=== PATIENT | male | born 1970 | race Caucasian/White ===

== ENCOUNTER 2020-02-01 10:20 | Outpatient (CLI) | payer OTHER, SELFPAY ==
--- NOTE | ~2020-02-01 | XR_ITS ---
XR chest 2V DATE: 02/01/2020 10:52 INDICATION: Acute respiratory infection for 6 days TECHNIQUE: PA and lateral views COMPARISON: 05/13/2019 PA and lateral views FINDINGS: Normal heart size. No hilar or mediastinal enlargement. No pulmonary infiltrate or consol idation, pulmonary vascular congestion or pleural effusion or pneumothorax. IMPRESSION: No active cardiopulmonary disease Reviewed, dictated and finalized at location A.
[2020-02-01 10:54] LABS: Hematocrit 44.8 % (40.0-54.0); Hemoglobin 15.4 g/dL (14.0-18.0); Mean Corpuscular HGB Conc 34.4 g/dL (32.0-36.0); Mean Corpuscular Hemoglobin 30.3 pg (27.0-31.0); Mean Corpuscular Volume 88.2 fL (78.0-102.0); Mean Platelet Volume 9.6 fl (8.7-11.0); Platelet Count Result 312 K/mm3 (150-420); Red Blood Count 5.08 M/mm3 (4.70-6.10); Red Cell Distribution Width 12.7 % (11.6-14.4); White Blood Count 5.9 K/mm3 (4.8-10.8)
[2020-02-01 11:30] LABS: Anion Gap 13.3 mmol/L (7-16); Blood Urea Nitrogen 11 mg/dL (7-18); Calcium 8.5 mg/dL (8.5-10.1); Carbon Dioxide 29 mmol/L (21-32); Chloride 102 mmol/L (98-108); Estimated Glomerular Filt Rate > 60; Glucose 108 mg/dL (70-99); Osmolality Calculated 292 mOsm/kg (285-295); Potassium 3.3 mmol/L (3.5-5.1); Sodium 141 mmol/L (136-145)
== END 2020-02-01 10:21 | disposition home or self-care (01) ==
LOC: CHSLAB 10:23
PROVIDERS: PCP Family Medicine; Visit Provider Family Medicine
DX: J06.9 Acute upper respiratory infection, unspecified (principal)
CPT/HCPCS: 36415; 71046; 80048; 85027

== ENCOUNTER 2021-05-11 07:26 | Outpatient (CLI) | payer OTHER, SELFPAY ==
--- NOTE | ~2021-05-11 | MR_ITS ---
EXAMINATION: MR brain/brain stem wo con DATE: 05/13/2021 08:38 CDT INDICATION: Headache TECHNIQUE: Magnetic resonance imaging (MRI) of the brain and brainstem was performed without intraven ous contrast. Sequences included sagittal and axial T1-weighted SE, axial diffusion-weighted FS SE, a xial T2*-weighted GRE, axial T2-weighted FLAIR Propeller, and axial T2-weighted Propeller. Apparent d iffusion coefficient (ADC) maps were created. COMPARISON: No prior studies for comparison. FINDINGS: The brain volume and ventricular system are within normal limits. The brain parenchymal si gnal intensity pattern and penn/white matter is normal and there is no evidence of hemorrhage, space occupying masses or infarctions. The flow signal voids of the major arterial structures about the kaibab of Weiss and within the cb r dural venous sinuses appear grossly unremarkable and patent. The seventh and eighth cranial nerve complexes are normal. The mid sagittal image demonstrates a normal craniovertebral junction and roberto us callosum. The paranasal sinuses are grossly unremarkable. IMPRESSION: 1: Unremarkable MRI of the brain. Reviewed, dictated and finalized at location B.
== END 2021-05-11 07:27 | disposition home or self-care (01) ==
LOC: CHSIMG 07:29
PROVIDERS: PCP Family Medicine; Visit Provider Family Medicine
DX: R51.9 Headache, unspecified (principal)
CPT/HCPCS: 70551

== ENCOUNTER 2021-05-15 12:16 | Outpatient (CLI) | payer OTHER, SELFPAY ==
--- NOTE | 2021-05-15 13:55 | WPDPFTINT ---
PFT Procedure Performed PFT Procedure Performed Spirometry with Pre/Post Bronchodilator Plethysmography (Lung Vol) Diffusing Cap (DLCO) Flow Vol Loop PFT Interpretation DOS: 05/15/2021 REQUESTING: Dr. Barkley REASON FOR TESTING: Post COVID shortness of breath PULMONARY FUNCTION TESTS Results are reliable and reproducible Spirometry: FEV1 is 80% predicted, 2.75 L. FVC is 85% predicted. The FEV1/ FVC ratio was 92% normal. FEF 25-75% is 59%. There is no statistical change after bronchodilator administration. Lung volumes: Total lung capacity is 82%, normal. Residual volume 72% normal. RV/TLC is normal. There is no hyperinflation or air trapping. Increased airway resistance 192%. Diffusion: DLCO is 109%, normal. Flow volume loop: Normal flow volume loop. IMPRESSION: This shows a normal spirometry, lung volumes and diffusion with a normal flow volume loop. There is no change with bronchodilator. No correlate for the patient's symptoms. Philomena Mercer MD
--- NOTE | 2021-05-17 15:42 | WPDHOLTEREM ---
Holter/Event Monitor Holter/Event Monitor Date of procedure: 05/15/21 Holter/Event Procedure: 48 Hr Holter Monitor Indications: Palpitations Conclusion: 1. 48 hour holter monitor on 05/15/21. 2. Underlying rhythm is sinus rhythm. HR range 53-154 bpm; average HR 83 bpm. 3. There are 4 premature supraventricular complexes. No supraventricular tachycardia. 4. There are 36 premature ventricular complexes. No ventricular tachycardia. 5. No sinoatrial or atrioventricular blocks. No significant pauses greater than 2 seconds. 6. Patient reports symptoms of shortness of breath and dizziness which demonstrate sinus rhythm, HR range 103-113 bpm.
== END 2021-05-15 12:17 | disposition home or self-care (01) ==
LOC: CHSCARD 12:19
PROVIDERS: PCP Family Medicine; Visit Provider Family Medicine
DX: R00.2 Palpitations (principal); B99.9 Unspecified infectious disease
CPT/HCPCS: 93225; 93226; 93227; 94060; 94726; 94729

== ENCOUNTER 2021-06-26 12:54 | Outpatient (CLI) | payer OTHER, SELFPAY ==
[2021-06-26 13:54] LABS: SARS-CoV-2 RNA PCR Negative (Negative)
== END 2021-06-26 12:55 | disposition home or self-care (01) ==
PROVIDERS: PCP Family Medicine; Visit Provider Nurse Practitioner Family
DX: Z20.822 Contact with and (suspected) exposure to COVID-19 (principal)
CPT/HCPCS: C9803; U0003; U0005

== ENCOUNTER 2021-07-16 10:18 | Outpatient (CLI) | payer OTHER, SELFPAY ==
[2021-07-16 11:12] LABS: Cholesterol 221 mg/dL (0-200); HDL Direct 30 mg/dL (40-60); LDL Cholesterol Calculated 151 mg/dL (<130); Prostate Specific Antigen 0.5 ng/mL (< OR = 4.0); Triglycerides 201 mg/dL (0-150)
== END 2021-07-16 10:19 | disposition home or self-care (01) ==
PROVIDERS: PCP Family Medicine; Visit Provider Family Medicine
DX: R35.0 Frequency of micturition (principal)
CPT/HCPCS: 36415; 80061; 84153; 87086; G0103

== ENCOUNTER 2021-08-05 10:06 | Outpatient (CLI) | payer OTHER, SELFPAY ==
[2021-08-05 11:25] LABS: SARS-CoV-2 RNA PCR Negative (Negative)
== END 2021-08-05 10:07 | disposition home or self-care (01) ==
LOC: CHSLAB 10:09
PROVIDERS: PCP Family Medicine; Visit Provider Family Medicine
DX: Z20.822 Contact with and (suspected) exposure to COVID-19 (principal)
CPT/HCPCS: C9803; U0003; U0005

== ENCOUNTER 2021-09-16 09:52 | Outpatient (CLI) | payer OTHER, SELFPAY ==
[2021-09-16 11:25] LABS: Influenza A QL RT-PCR Negative (Negative); Influenza B QL RT-PCR Negative (Negative); SARS-CoV-2 RNA PCR Negative (Negative)
== END 2021-09-16 09:53 | disposition home or self-care (01) ==
PROVIDERS: PCP Family Medicine; Visit Provider Family Medicine
DX: R05.9 Cough, unspecified (principal); Z20.822 Contact with and (suspected) exposure to COVID-19
CPT/HCPCS: 87502; C9803; U0003; U0005

== ENCOUNTER 2021-09-19 15:21 | Outpatient (CLI) | payer OTHER, SELFPAY ==
--- NOTE | ~2021-09-19 | XR_ITS ---
EXAMINATION: XR chest 2V EXAM DATE: 09/19/2021 15:38 INDICATION: Cough with SOB x 1 wk. no other chest complaints. TECHNIQUE: Frontal and lateral projections of the chest obtained and reviewed. Comparison is made to prior examination from 02/01/2020. FINDINGS: The lungs are clear. There are no pleural effusions. The cardiomediastinal silhouette is within normal limits. There is no pneumothorax suspected. The bones and soft tissues are unremarkab le. IMPRESSION: No acute cardiopulmonary findings. Reviewed, dictated and finalized at location B.
== END 2021-09-19 15:22 | disposition home or self-care (01) ==
LOC: CHSIMG 15:22
PROVIDERS: PCP Nurse Practitioner Family; Visit Provider Nurse Practitioner Family
DX: R05.9 Cough, unspecified (principal)
CPT/HCPCS: 71046

== ENCOUNTER 2021-10-16 09:18 | Outpatient (CLI) | payer OTHER, SELFPAY ==
[2021-10-16 10:41] LABS: SARS-CoV-2 RNA PCR Negative (Negative)
== END 2021-10-16 09:19 | disposition home or self-care (01) ==
LOC: CHSLAB 09:21
PROVIDERS: PCP Family Medicine; Visit Provider Nurse Practitioner Family
DX: Z20.822 Contact with and (suspected) exposure to COVID-19 (principal)
CPT/HCPCS: C9803; U0003; U0005

== ENCOUNTER 2021-11-27 13:13 | Outpatient (CLI) | payer OTHER, SELFPAY ==
[2021-11-27 14:18] LABS: SARS-CoV-2 Ag Negative (Negative)
== END 2021-11-27 13:14 | disposition home or self-care (01) ==
LOC: CHSLAB 13:15
PROVIDERS: PCP Family Medicine; Visit Provider Nurse Practitioner Family
DX: Z20.822 Contact with and (suspected) exposure to COVID-19 (principal)
CPT/HCPCS: 87426; C9803

== ENCOUNTER 2022-06-25 07:22 | Outpatient (CLI) | payer OTHER, SELFPAY ==
--- NOTE | ~2022-06-25 | US_ITS ---
US abdomen limited INDICATION: Abdomen pain and nausea PROCEDURE: Realtime right upper abdominal ultrasound. COMPARISON: No prior studies for comparison. FINDINGS: The pancreas is normal without focal mass or pancreatic ductal dilation. Liver echotexture is increased, consistent with fatty infiltration. There is normal directional flow in the portal ve in. The gallbladder is normal without stones, gallbladder wall thickening or pericholecystic fluid. Comm on bile duct measures 3 mm. No sonographic Mcguire's sign. IMPRESSION: 1: Hepatic steatosis. Reviewed, dictated and finalized at location A. IMPRESSION: 1: Hepatic steatosis.
== END 2022-06-25 07:23 | disposition home or self-care (01) ==
LOC: CHSIMG 07:24
PROVIDERS: PCP Family Medicine; Visit Provider Family Medicine
DX: R10.9 Unspecified abdominal pain (principal)
CPT/HCPCS: 76705

== ENCOUNTER 2023-05-11 18:46 | Emergency (ER) | payer OTHER, SELFPAY ==
--- NOTE | ~2023-05-11 | XR_ITS ---
EXAMINATION: XR chest 1V portable Exam Date/Time: 05/11/2023 20:02 CDT HISTORY: LEFT SIDE CP TODAY Comparison: 09/11/2021. RESULT: Lines, tubes, and devices: None. Lungs and pleura: Left basilar scar/atelectasis, lungs otherwise clear. Cardiomediastinal silhouette: Stable. Other: No acute osseous or upper abdominal finding. IMPRESSION: No acute cardiopulmonary process. Reviewed, dictated and finalized at location K.
[2023-05-11 18:47] VITALS: BP 165/105; PULSE 97; RESP 20; TEMP 36.8; O2SAT 97
--- NOTE | 2023-05-11 18:49 | ECG_ITS ---
Measurements Intervals [place] Rate: 98 P: 48 TX: 144 QRS: 27 QRSD: 84 T: 76 QT: 355 QTc: 454 Interpretive Statements SINUS RHYTHM MINIMAL VOLTAGE CRITERIA FOR LVH, CONSIDER NORMAL VARIANT [MEETS CRITERIA IN ONE OF: R(aVL), S(V1), R(V5), R(V5/V6)+S(V1)] NONSPECIFIC T-WAVE ABNORMALITY NO PREVIOUS ECG AVAILABLE FOR COMPARISON Electronically Signed On 05-12-2023 18:22:16 CDT by La Solano M.D.
[2023-05-11 18:55] VITALS: BP 165/105; PULSE 102; RESP 12; TEMP 37.2; O2SAT 97
--- NOTE | 2023-05-11 19:03 | PC.NURSE ---
patient reports he has not taken his blood pressure medication for over a month.
[2023-05-11 19:30] VITALS: PULSE 92
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
[2023-05-11 20:00] VITALS: BP 132/99; PULSE 92; RESP 20; O2SAT 99
[2023-05-11 20:14] VITALS: PULSE 94
[2023-05-11] MEDS: ASPIRIN 81 MG CHEWABLE TABLET 324 MG PO (20:14)
[2023-05-11] MEDS: METOPROLOL TARTRATE 50 MG TAB PO (20:14)
[2023-05-11 20:16] LABS: Basophils Absolute Auto 0.06 K/mm3 (0.00-0.10); Basophils Percent Auto 0.8 % (0.0-1.0); Eosinophils Absolute Auto 0.13 K/mm3 (0.02-0.50); Eosinophils Percent Auto 1.8 % (1.0-6.0); Hematocrit 43.6 % (40.0-54.0); Hemoglobin 14.6 g/dL (14.0-18.0); Immature Granulocyte Absolute 0.02 K/mm3 (0.00-0.00); Immature Granulocyte Percent A 0.3 % (0.0-0.0); Lymphocytes Absolute Auto 1.72 K/mm3 (1.10-4.50); Lymphocytes Percent Auto 24.4 % (18.0-42.0); Mean Corpuscular HGB Conc 33.5 g/dL (32.0-36.0); Mean Corpuscular Hemoglobin 30.9 pg (27.0-31.0); Mean Corpuscular Volume 92.4 fL (78.0-102.0); Mean Platelet Volume 9.5 fl (8.7-11.0); Monocytes Absolute Auto 0.73 K/mm3 (0.10-0.90); Monocytes Percent Auto 10.3 % (2.0-11.0); Neutrophils Absolute Auto 4.4 K/mm3 (1.7-7.2); Neutrophils Percent Auto 62.4 % (50.0-70.0); Platelet Count Result 369 K/mm3 (150-420); Red Blood Count 4.72 M/mm3 (4.70-6.10); Red Cell Distribution Width 12.9 % (11.6-14.4); White Blood Count 7.1 K/mm3 (4.8-10.8)
[2023-05-11] MEDS: ONDANSETRON INJ 4 MG/2 ML VIAL IV PUSH (20:16)
[2023-05-11 20:36] LABS: Appearance Urine Clear (Clear); Bilirubin Urine Negative (Negative); Blood Urine Trace-Intact (Negative); Color Urine Light Yellow (Yellow); Glucose Urine UA Negative (Negative); Ketones Urine Negative (Negative); Leukocyte Esterase Ur Negative LEU/UL (Negative); Nitrate Urine Negative (Negative); Protein Urine Negative (Negative); Urobilinogen Urine 0.2 mg/dL (0.2-1.0); pH Urine 6.5 (5.0-8.0)
[2023-05-11 20:39] LABS: Alanine Aminotransferase 77 U/L (16-63); Albumin Level 3.5 g/dL (3.4-5.0); Alkaline Phosphatase 93 U/L (46-116); Anion Gap 8 mmol/L (8-16); Aspartate Amino Transferase 30 U/L (15-37); Bilirubin,Total 0.3 mg/dL (0.00-1.00); Blood Urea Nitrogen 16 mg/dL (7-18); Calcium 8.4 mg/dL (8.5-10.1); Carbon Dioxide 29 mmol/L (21-32); Chloride 105 mmol/L (98-108); Estimated CRCL calculation 74 ml/min; Estimated Glomerular Filt Rate > 60; Glucose 108 mg/dL (70-99); Osmolality Calculated 296 mOsm/kg (285-295); Potassium 3.3 mmol/L (3.5-5.1); Sodium 142 mmol/L (136-145); Total Protein 6.9 g/dL (6.4-8.2); Troponin I 13.2 ng/L (0.00-60.4)
[2023-05-11 20:42] LABS: Add Urine Microscopic? YES; Bacteria Urine None seen /hpf; RBC Urine 0-2 /hpf (0-2); Squamous Epithelial Cell Urine None seen /hpf (Few); WBC Urine 0-3 /hpf (0-3)
[2023-05-11 20:47] VITALS: BP 148/92; PULSE 83; RESP 18; O2SAT 99
[2023-05-11 23:37] LABS: Troponin I 16.3 ng/L (0.00-60.4)
[2023-05-12] MEDS: KETOROLAC 15 MG/ML VIAL (*BKC) IV PUSH (00:03)
[2023-05-12 00:06] VITALS: BP 140/88; PULSE 78; RESP 18; TEMP 36.6; O2SAT 97
== END 2023-05-12 00:26 | disposition home or self-care (01) ==
PROVIDERS: Emergency Provider Emergency Medicine
DX: R07.89 Other chest pain (principal); I10 Essential (primary) hypertension; R51.9 Headache, unspecified; E78.5 Hyperlipidemia, unspecified; Z79.82 Long term (current) use of aspirin; Z87.891 Personal history of nicotine dependence; V89.0XXA Person injured in unspecified motor-vehicle accident, nontraffic, initial encounter
CPT/HCPCS: 36415; 71045; 80053; 81001; 84484; 85025; 93005; 96374; 99284; A9270; J1885; J2405

== ENCOUNTER 2023-07-20 14:44 | Emergency (ER) | payer OTHER, SELFPAY ==
--- NOTE | ~2023-07-20 | XR_ITS ---
EXAMINATION: XR elbow RT min 3V DATE: 07/20/2023 15:23 INDICATION: Right elbow pain post fall TECHNIQUE: Anteroposterior, two oblique and lateral views of the right elbow were obtained. COMPARISON: None. FINDINGS: Alignment is normal. No fracture or joint effusion. Joint spaces are normal. Soft tissues are unremar kable. IMPRESSION: 1. Negative right elbow radiographs. Reviewed, dictated and finalized at location A.
--- NOTE | ~2023-07-20 | XR_ITS ---
EXAMINATION: XR wrist LT min 3V DATE: 07/20/2023 15:23 INDICATION: Left wrist pain post fall TECHNIQUE: Posteroanterior, ulnar deviation, oblique, and lateral views of the left wrist were obtain ed. COMPARISON: none FINDINGS: Alignment is normal. No fracture. Joint spaces are normal. Soft tissues are unremarkable. IMPRESSION: 1. Negative left wrist radiographs. Reviewed, dictated and finalized at location A.
--- NOTE | ~2023-07-20 | XR_ITS ---
EXAMINATION: XR ankle RT min 3V DATE: 07/20/2023 15:23 INDICATION: Right ankle pain post fall TECHNIQUE: Anteroposterior, oblique, mortise, and lateral views of the right ankle were obtained. COMPARISON: None. FINDINGS: Alignment is normal. No fracture. Joint spaces are well maintained. No ankle joint effusion. The so ft tissues are unremarkable. IMPRESSION: 1. Negative right ankle radiographs. Reviewed, dictated and finalized at location A.
[2023-07-20 14:49] VITALS: BP 118/73; PULSE 74; RESP 16; TEMP 37; O2SAT 95
--- NOTE | 2023-07-20 15:20 | ED.FALL ---
HPI - Fall General Chief Complaint: Fall Stated Complaint: R elbow R ankle L wrist, fall Time Seen by Provider: 07/20/23 14:58 Source: patient Mode of arrival: wheelchair Limitations: no limitations History of Present Illness HPI Narrative: 53 year old male presents to the Emergency Department complaining of fall prior to arrival. patient states he twisted right ankle and fell backwards striking elbow and wall and then fell onto outstretched left wrist. Denies striking head or loss of consciousness. Denies other injury. MD complaint: fall Onset (ago): minute(s) Fall from: standing Place fall occurred: home Loss of consciousness: none Symptoms prior to fall: none Context: tripped/slipped Location of injury: other (right elbow, right ankle, left wrist) Location of injury - extremities: Left: arm (wrist) and Right: elbow and ankle Severity: moderate Quality: aching and throbbing Associated symptoms (after fall): denies Related Data Home Medications Medication Instructions Recorded Confirmed aspirin 81 mg tablet,delayed 81 mg PO DAILY 05/06/21 07/20/23 release (Adult Low Dose Aspirin) loratadine 10 mg tablet (Allergy 10 mg PO DAILY 05/06/21 07/20/23 Relief (loratadine)) Allergies Allergy/AdvReac Type Severity Reaction Status Date / Time lisinopril Allergy Intermediate dizziness Verified 07/20/23 14:49 amoxicillin [From Augmentin] AdvReac Severe Vomiting Verified 07/20/23 14:49 clavulanic acid AdvReac Severe Vomiting Verified 07/20/23 14:49 [From Augmentin] [id number]-OVF-QhX Reductase AdvReac Intermediate Muscle Pain Verified 07/20/23 14:49 Inhibitor [Ctrkubv-Tos-Xtd Reductase Inhibitor] Review of Systems Review of Systems: All systems reviewed & are unremarkable except as noted in HPI and below Constitutional: Constitutional: Reports as per HPI and Reports no additional constitutional complaints Eyes: Eyes: Reports as per HPI and Reports no additional eye complaints ENT: Reports system reviewed and no additional complaints, except as documented Cardiovascular: Cardiovascular: Reports as per HPI and Reports no additional cardiovascular complaints Respiratory: Respiratory: Reports as per HPI and Reports no additional respiratory complaints Gastrointestinal: Gastrointestinal: Reports as per HPI and Reports no additional gastrointestinal complaints Genitourinary: Genitourinary: Reports no additional male genitourinary complaints Musculoskeletal: Musculoskeletal: Reports no additional musculoskeletal complaints, Reports as per HPI and Reports arthralgias (right elbow, right ankle, left wrist) Integumentary/Breasts: Skin/Breast: Reports system reviewed and no additional complaints, except as docu Neurologic: Reports system reviewed and no additional complaints, except as documented Psychiatric: Psychiatric: Reports no additional psychiatric complaints Endocrine: Endocrine: Reports no additional endocrine complaints Hematologic/Lymphatic: Hematologic/Lymphatic: Reports no additional hematologic/lymphatic complaints Allergic/Immunologic: Allergic/Immunologic: Reports no additional allergic/immunologic complaints PMFSH Past Medical History Medical History Hyperlipidemia Hypertension Surgical History Surgical History History of removal of cyst Left Hand Social History Social History Smoking status: Former smoker Tobacco type: cigarettes Additional smoking assessment comments: Quit 2010 Lack of Transportation: No Lack of Food: Never True Current Housing: I Have Housing Concerned About Future Housing: No Difficulty Paying Gas/Electric Bills: No Difficulty Paying for Meds: No Currently Unemployed: No Education: High School Diploma/GED Difficulty w/ Childcare or Family Care: No Living arrangements:
[2023-07-20] MEDS: traMADol HCL (*CRX) 50 MG TABLET PO (16:28)
[2023-07-20 16:50] VITALS: BP 110/76; PULSE 59; RESP 17; TEMP 36.4; O2SAT 95
== END 2023-07-20 16:50 | disposition home or self-care (01) ==
PROVIDERS: Emergency Provider Emergency Medicine; PCP Family Medicine
DX: S93.401A Sprain of unspecified ligament of right ankle, initial encounter (principal); S63.502A Unspecified sprain of left wrist, initial encounter; S50.01XA Contusion of right elbow, initial encounter; E78.5 Hyperlipidemia, unspecified; I10 Essential (primary) hypertension; Z79.82 Long term (current) use of aspirin; Z87.891 Personal history of nicotine dependence; W18.39XA Other fall on same level, initial encounter; Y92.009 Unspecified place in unspecified non-institutional (private) residence as the place of occurrence of the external cause
CPT/HCPCS: 73080; 73110; 73610; 99284; A9270

== ENCOUNTER 2024-01-07 11:50 | Outpatient (CLI) | payer OTHER, SELFPAY ==
[2024-01-07 12:25] LABS: Hemoglobin A1C 5.8 % (<5.7)
== END 2024-01-07 11:51 | disposition home or self-care (01) ==
LOC: CHSLAB 11:52
PROVIDERS: PCP Family Medicine; Visit Provider Family Medicine
DX: E11.9 Type 2 diabetes mellitus without complications (principal)
CPT/HCPCS: 36415; 83036

== ENCOUNTER 2024-01-18 08:46 | Outpatient (CLI) | payer OTHER, SELFPAY ==
--- NOTE | 2024-01-18 08:52 | ECHO_ITS ---
Patient Info Name: Byron Johns Age: 54 years : 1970 Gender: Male Ht: 69 in Wt: 175 lbs BSA: 1.98 m2 HR: 65 bpm BP: 137 / 89 mmHg Heart Rhythm: Sinus Rhythm Technical Quality: Good Exam Date: 01/18/2024 10:12 AM Exam Location: Echo Lab Patient Status: Outpatient Admit Date: 01/18/2024 Staff Ordering Physician: Miguel Barkley DO City Bus Driver: Nilsa Piña RDCS Attending Provider: Miguel Barkley DO Referring Physician: Filippo MCCORMICK; Exam Type: CA echo doppler color flow Study Info Indications - other forms of dyspnea Complete two-dimensional, color flow and Doppler transthoracic echocardiogram is performed. Summary 1. Complete two-dimensional, color flow and Doppler transthoracic echocardiogram is performed. 2. Left ventricular chamber dimension is normal. 3. Left ventricular systolic function is normal, estimated at 60-65%. 4. The left ventricular diastolic function is grade I diastolic dysfunction. 5. E/e' 16 is elevated. 6. There is trace mitral valve regurgitation. 7. No pulmonary hypertension, estimated pulmonary arterial systolic pressure is 16 mmHg. Left Ventricle E/e' 16 is elevated. Left ventricular chamber dimension is normal. Left ventricular systolic function is normal, estimated at 60-65%. The left ventricular diastolic function is grade I diastolic dysfunction. Right Ventricle Right ventricular systolic function is normal and with normal TAPSE 2.2 cm. Right ventricular chamber dimension is normal. Left Atria Left atrial chamber dimension is normal. Right Atria Right atrial chamber dimension is normal. Aortic Valve The aortic valve is trileaflet. There is no aortic valve stenosis. There is no aortic valve regurgitation. Pulmonic Valve There is no pulmonic regurgitation. Mitral Valve There is no mitral valve stenosis. There is trace mitral valve regurgitation. Tricuspid Valve There is no tricuspid valve regurgitation. No pulmonary hypertension, estimated pulmonary arterial systolic pressure is 16 mmHg. Pericardium/Pleural There is no pericardial effusion. Inferior Vena Cava Normal inferior vena cava with >50% collapse upon inspiration consistent with normal right atrial pressure, 5 mmHg. Aorta The aortic root size at the sinus of Valsalva is normal. Left Ventricular Outflow Tract Name Value Normal LVOT 2D LVOT Diameter 2.2 cm LVOT Doppler LVOT Peak Velocity 93 cm/s LVOT Peak Gradient 3 mmHg LVOT Mean Gradient 2 mmHg LVOT VTI 29 cm LVOT VTI/AV VTI Ratio 1.0 LVOT Stroke Volume 109 ml Pulmonic Valve Name Value Normal RVOT Doppler RVOT Peak Gradient 2 mmHg PV Doppler PV Peak Velocity 80 cm/s
[2024-01-18 11:12] LABS: Iron 130 ug/dL (65-175); Percent Iron Saturation 59 % (12-57)
[2024-01-21 13:48] LABS: Vitamin D 25 Hydroxy 12 ng/mL (30-100)
== END 2024-01-18 08:47 | disposition home or self-care (01) ==
PROVIDERS: PCP Family Medicine; Visit Provider Family Medicine
DX: E61.1 Iron deficiency (principal); E78.5 Hyperlipidemia, unspecified; R06.09 Other forms of dyspnea
CPT/HCPCS: 36415; 82306; 83540; 83550; 93306

== ENCOUNTER 2024-01-25 07:31 | Outpatient (CLI) | payer OTHER, SELFPAY ==
--- NOTE | 2024-01-25 07:34 | EST_ITS ---
Patient Info Name: Byron Johns Age: 54 years : 1970 Gender: Male Ht: 68 in Wt: 175 lbs BSA: 1.97 m2 HR: 77 bpm BP: 122 / 79 mmHg Heart Rhythm: Sinus Rhythm Technical Quality: Good Exam Date: 01/25/2024 8:56 AM Exam Location: Echo Lab Patient Status: Outpatient Admit Date: 01/25/2024 Staff Ordering Physician: Miguel Barkley DO Attending Provider: Miguel Barkley DO Exam Type: CA stress test treadmill w NM Study Info A treadmill exercise stress test was performed. History/Risk Factors Hypertension: Yes Summary 1. 1. Negative Aristeo exercise stress test for ischemic ST changes by ECG criteria. 2. 2. Reduced functional capacity, achieving 7 METs of workload. 3. 3. Appropriate HR response to exercise. 4. 4. Appropriate HR recovery at 1 minute post exercise. 5. 5. Nuclear scan to follow and will be reported separately. Please correlate with it. Protocol: Aristeo Stress ECG Details Stage: REST Duration (min): 2 min : 45 sec Speed (mph): 0.0 Grade (%): 0 HR (bpm): 80 SBP (mmHg): 122 DBP (mmHg): 79 METS: --- Stage: REST Duration (min): 11 min : 44 sec Speed (mph): 0.0 Grade (%): 0 HR (bpm): 79 SBP (mmHg): 122 DBP (mmHg): 79 METS: --- Stage: STAGE 1 Duration (min): 1 min : 0 sec Speed (mph): 1.7 Grade (%): 10 HR (bpm): 114 SBP (mmHg): 122 DBP (mmHg): 79 METS: --- Stage: STAGE 1 Duration (min): 2 min : 0 sec Speed (mph): 1.7 Grade (%): 10 HR (bpm): 123 SBP (mmHg): 122 DBP (mmHg): 79 METS: --- Stage: STAGE 1 Duration (min): 3 min : 0 sec Speed (mph): 1.7 Grade (%): 10 HR (bpm): 121 SBP (mmHg): 124 DBP (mmHg): 76 METS: --- Stage: STAGE 2 Duration (min): 1 min : 0 sec Speed (mph): 2.5 Grade (%): 12 HR (bpm): 137 SBP (mmHg): 124 DBP (mmHg): 76 METS: --- Stage: STAGE 2 Duration (min): 2 min : 0 sec Speed (mph): 2.5 Grade (%): 12 HR (bpm): 142 SBP (mmHg): 124 DBP (mmHg): 76 METS: --- Stage: STAGE 2 Duration (min): 3 min : 0 sec Speed (mph): 2.5 Grade (%): 12 HR (bpm): 148 SBP (mmHg): 125 DBP (mmHg): 70 METS: --- Stage: STAGE 3 Duration (min): 1 min : 0 sec Speed (mph): 3.4 Grade (%): 14 HR (bpm): 159 SBP (mmHg): 125 DBP (mmHg): 70 METS: --- Stage: STAGE 3 Duration (min): 1 min : 20 sec Speed (mph): 3.4 Grade (%): 14 HR (bpm): 163 SBP (mmHg): 125 DBP (mmHg): 70 METS: --- Stage: RECOVERY Duration (min): 0 min : 39 sec Speed (mph): 0.0 Grade (%): 0 HR (bpm): 155 SBP (mmHg): 125 DBP (mmHg): 70 METS: --- Stage: RECOVERY Duration (min): 1 min : 39 sec Speed (mph): 0.0 Grade (%): 0 HR (bpm): 127 SBP (mmHg): 118 DBP (mmHg): 67 METS: --- Stage: RECOVERY Duration (min): 2 min : 39 sec Speed (mph): 0.0 Grade (%): 0 HR (bpm): 113 SBP (mmHg): 118 DBP (mmHg): 67 METS: ---
--- NOTE | 2024-01-25 16:36 | WPDCARIOSTRE ---
Nuclear Stress Test INDICATIONS Indications: Dyspnea PROCEDURE Procedure Performed: Myocardial Perf Spect-Multi Procedure: Patient exercised on a Aristeo protocol and at peak exercise was injected with 30.8 mCi of cardiolyte. Multiple tomographic images were obtained. These are of good quality. There is no perfusion defect with stress imaging. A separate resting images were obtained after patient was injected with 10 mCi of cardiolyte. Multiple tomographic images were obtained. These are of good quality. There is no perfusion defect with rest imaging. CONCLUSION Conclusion: 1. Normal myocardial perfusion imaging demonstrating no perfusion defects with stress or rest imaging. 2. No reversible ischemia. 3. Left ventriculogram demonstrates normal measured ejection fraction of 77% with no wall motion abnormalities. 4. TID score 0.68 is not elevated.
== END 2024-01-25 07:32 | disposition home or self-care (01) ==
LOC: CHSIMG 07:31
PROVIDERS: PCP Family Medicine; Visit Provider Family Medicine
DX: R06.09 Other forms of dyspnea (principal)
CPT/HCPCS: 78452; 93017; A9502

== ENCOUNTER 2024-03-03 14:49 | Emergency (ER) | payer OTHER, SELFPAY ==
[2024-03-03] VITALS (66 sets, daily range): BP systolic 109–169; BP diastolic 78–120; PULSE 86–131; RESP 12–24; TEMP 36.7; O2SAT 89–100
--- NOTE | ~2024-03-03 | XR_ITS ---
EXAMINATION: XR chest 1V portable 03/03/2024 15:02 INDICATION: Chest pain. Dyspnea with exertion. PROCEDURE: AP portable chest COMPARISON: No prior studies for comparison. FINDINGS: The lungs are clear. The cardiomediastinal silhouette is within normal limits. There are no pleural effusions. There is no pneumothorax suspected. IMPRESSION: 1: NO ACUTE CARDIOPULMONARY DISEASE. Reviewed, dictated and finalized at location A.
--- NOTE | ~2024-03-03 | CT_ITS ---
EXAMINATION: CTA chest PE protocol DATE: 03/03/2024 16:03 CDT INDICATION: Shortness of breath and chest pain TECHNIQUE: Computed tomographic angiography (CTA) of the chest was performed with 100 mL Omnipaque-35 0 intravenous contrast. The dose-length product was 314.78 mGy-cm. Maximum intensity projection 3D-re constructions of the aorta and other arteries were constructed by the technologist on a separate work station. Automated exposure control and iterative reconstruction technique were employed. COMPARISON: Chest dated 03/03/2024. FINDINGS: Heart size normal. No significant pleural or pericardial effusion. Study is technically frank quate without evidence for pulmonary embolism. No thoracic lymphadenopathy. Upper abdomen is unremark able. There is left lower lobe atelectasis. No endobronchial lesions. No pneumothorax. No suspicious pulmonary nodules or masses. Mild thoracic spondylosis. No acute osseous abnormality. There is dextro scoliosis of the thoracic spine. IMPRESSION: 1. No acute cardiopulmonary disease. No evidence for pulmonary embolism. Reviewed, dictated and finalized at location A.
--- NOTE | 2024-03-03 14:52 | ECG_ITS ---
SEE SCANNED COPY FOR CONFIRMED REPORT MTDD
[2024-03-03] MEDS: SODIUM CHLORIDE 0.9% IV 1,000 ML 999 ML IV CONT (14:58)
[2024-03-03] MEDS: NITROGLYCERIN SL 0.4 MG TABLET SUBLINGUAL ×4 (15:00→23:57)
[2024-03-03] MEDS: ASPIRIN 81 MG CHEWABLE TABLET 324 MG PO (15:00)
--- NOTE | 2024-03-03 15:00 | ED.CHESTPAIN ---
HPI - Chest Pain General Chief Complaint: Chest Pain Stated Complaint: chest pain; sob Time Seen by Provider: 03/03/24 14:50 Source: patient Mode of arrival: ambulatory Limitations: no limitations History of Present Illness HPI narrative: this is 54-year-old male presents with chest pain pressure sensation substernal left chest area, He rates it 9/10 radiating into his left shoulder and jaw started about half an hour ago when he was mowing grass became short of breath mild nausea and some diaphoresis, the patient has a history of hypertension hyperlipidemia no significant family history of CAD was mild smoker up until 2009 and quit subsequently to that. No abdominal pain no fever chills no dysuria no flank pain. MD complaint: chest pain and chest heaviness Onset (ago): hour(s) Timing of current episode: constant Prior episodes: Yes Onset: during exertion Pain location: left chest Pain radiation: left arm and jaw/teeth Severity: severe Pain scale (0-10): 9 Quality: tightness Relieving factors: nothing Exacerbating factors: exertion Related Data Home Medications Medication Instructions Recorded Confirmed aspirin 81 mg tablet,delayed 81 mg PO DAILY 05/06/21 03/03/24 release (Adult Low Dose Aspirin) loratadine 10 mg tablet (Allergy 10 mg PO DAILY 05/06/21 03/03/24 Relief (loratadine)) losartan 25 mg tablet See Rx Instructions .Route .COMPLEX 02/04/24 03/03/24 propranolol 40 mg tablet See Rx Instructions .Route .COMPLEX 02/04/24 03/03/24 Allergies Allergy/AdvReac Type Severity Reaction Status Date / Time lisinopril Allergy Intermediate dizziness Verified 03/03/24 14:54 amoxicillin [From Augmentin] AdvReac Severe Vomiting Verified 03/03/24 14:54 clavulanic acid AdvReac Severe Vomiting Verified 03/03/24 14:54 [From Augmentin] Fkmeyfv-STF-QmV Reductase AdvReac Intermediate Muscle Pain Verified 03/03/24 14:54 Inhibitor [Nkhtlsp-Dtm-Mxg Reductase Inhibitor] azrithirmycin Allergy Mild Vomiting Uncoded 03/03/24 14:54 Review of Systems Review of Systems: All systems reviewed & are unremarkable except as noted in HPI and below PMFSH Past Medical History Medical History Hyperlipidemia Hypertension Surgical History Surgical History History of removal of cyst Left Hand Social History Social History Smoking status: Never smoker Additional smoking assessment comments: Quit 2009 Lack of Transportation: No Lack of Food: Never True Current Housing: I Have Housing Concerned About Future Housing: No Difficulty Paying Gas/Electric Bills: No Difficulty Paying for Meds: No Currently Unemployed: No Education: High School Diploma/GED Difficulty w/ Childcare or Family Care: No Living arrangements: with family Additional living arrangements comments: . 2 Children. Exam Const: General: no acute distress Nutritional Appearance: well nourished Orientation/consciousness: patient oriented x3 Limitations: no limitations Chest: Chest palpation & inspection: normal inspection of the chest Resp: Effort & Inspection: normal respiratory effort Auscultation: clear to auscultation bilaterally Cardio: Rate: tachycardic Rhythm: regular rhythm GI: GI Palp: Yes Soft to palpation Auscultation: normal bowel sounds : General: Yes bladder normal to palpation Back/Spine/Pelvis: Back: no CVA tenderness Skin: General skin exam: normal color Rashes: no rashes Neuro: General: patient oriented x3 Psych: Mental Status: mental status grossly normal Course Course Emergency Course: patient with chest pain substernal left-sided radiating to his left jaw and left shoulder pain initially a 9/10 relieved with 3 sublingual nitroglycerin did receive 4mg of morphine and pain level is currently at a 0 after reassessmen
[2024-03-03 15:01] LABS: Basophils Absolute Auto 0.05 K/mm3 (0.00-0.10); Basophils Percent Auto 0.6 % (0.0-1.0); Eosinophils Absolute Auto 0.11 K/mm3 (0.02-0.50); Eosinophils Percent Auto 1.3 % (1.0-6.0); Hematocrit 43.3 % (40.0-54.0); Hemoglobin 14.3 g/dL (14.0-18.0); Immature Granulocyte Absolute 0.02 K/mm3 (0.00-0.00); Immature Granulocyte Percent A 0.2 % (0.0-0.0); Lymphocytes Absolute Auto 2.05 K/mm3 (1.10-4.50); Lymphocytes Percent Auto 24.6 % (18.0-42.0); Mean Corpuscular Hemoglobin 30.8 pg (27.0-31.0); Mean Corpuscular Volume 93.1 fL (78.0-102.0); Mean Platelet Volume 9.2 fl (8.7-11.0); Monocytes Absolute Auto 1.02 K/mm3 (0.10-0.90); Monocytes Percent Auto 12.2 % (2.0-11.0); Neutrophils Absolute Auto 5.09 K/mm3 (1.70-7.20); Neutrophils Percent Auto 61.1 % (50.0-70.0); Platelet Count Result 364 K/mm3 (150-420); Red Blood Count 4.65 M/mm3 (4.70-6.10); Red Cell Distribution Width 12.4 % (11.6-14.4); White Blood Count 8.3 K/mm3 (4.8-10.8)
[2024-03-03 15:14] LABS: INR 0.9; Partial Thromboplastin Time 25.8 Sec (23.9-30.70); Prothrombin Time 10.3 Seconds (9.50-12.1)
[2024-03-03 15:16] LABS: D Dimer 0.72 mg/L (0.19-0.50)
[2024-03-03 15:19] LABS: Lactic Acid Reflex 1.5 mmol/L (0.4-2.0)
[2024-03-03 15:23] LABS: Alanine Aminotransferase 110 U/L (16-63); Albumin Level 3.8 g/dL (3.4-5.0); Alkaline Phosphatase 93 U/L (46-116); Anion Gap 6 mmol/L (4-12); Aspartate Amino Transferase 59 U/L (15-37); Bilirubin,Total 0.5 mg/dL (0.00-1.00); Blood Urea Nitrogen 16 mg/dL (7-18); CRP 0.6 mg/dL (0.0-0.9); Carbon Dioxide 33 mmol/L (21-32); Chloride 105 mmol/L (98-108); Estimated CRCL calculation 55 ml/min; Estimated Glomerular Filt Rate 53; Glucose 90 mg/dL (70-99); Lipase 67 U/L (16-77); NT Pro B Type Natriuretic Pept 50 pg/mL (0-125); Osmolality Calculated 299 mOsm/kg (285-295); Potassium 3.6 mmol/L (3.5-5.1); Sodium 144 mmol/L (136-145); Total Protein 7.3 g/dL (6.4-8.2); Troponin I 43.1 ng/L (0.00-60.4)
[2024-03-03] MEDS: MORPHINE SULFATE (*CRX) 4 MG/ML INJ IV PUSH (15:34)
[2024-03-03 15:40] LABS: Influenza A QL RT-PCR Negative (Negative); Influenza B QL RT-PCR Negative (Negative); RSV RNA, RT-PCR Negative (Negative); SARS-CoV-2 RNA PCR Negative (Negative)
[2024-03-03 15:44] LABS: Appearance Urine Clear (Clear); Bilirubin Urine Negative (Negative); Blood Urine Trace-intact (Negative); Color Urine Light Yellow (Yellow); Glucose Urine UA Trace (Negative); Ketones Urine Negative (Negative); Leukocyte Esterase Ur Negative LEU/UL (Negative); Nitrate Urine Negative (Negative); Protein Urine Negative (Negative); Specific Grav Ur 1.015 (1.010-1.020); Urobilinogen Urine 0.2 mg/dL (0.2-1.0); pH Urine 6.5 (5.0-8.0)
[2024-03-03 15:45] LABS: Add Urine Microscopic? YES; Bacteria Urine Trace /hpf; RBC Urine 0-2 /hpf (0-2); Squamous Epithelial Cell Urine Rare /hpf (Few); WBC Urine None seen /hpf (0-3)
--- NOTE | 2024-03-03 16:41 | PC.NURSE ---
Pt continues to remain tachycaric. BP has improved. informed
[2024-03-03] MEDS: ONDANSETRON INJ 4 MG/2 ML VIAL IV PUSH ×2 (18:03→23:20)
--- NOTE | 2024-03-03 18:09 | PC.NURSE ---
Pt reports nausea. Given prn zofran per ERP order
[2024-03-03 18:30] LABS: Troponin I 1475.2 ng/L (0.00-60.4)
--- NOTE | 2024-03-03 18:38 | PC.NURSE ---
Lab gave critical result of trop 1475.2 MD Talamantes informed.
[2024-03-03] MEDS: HEPARIN SODIUM 5,000 UNITS/ML VIAL 4000 UNITS IV PUSH (18:58)
[2024-03-03] MEDS: HEPARIN SOD/D5W 100 UNITS/ML 25,000 UNITS/250 ML BAG 10 UNITS IV CONT (19:00)
--- NOTE | 2024-03-03 19:25 | PC.NURSE ---
Report recieved, pt resting has no c/o pain at this time. VSS, call being placed for transfer to [facility] per pt wish to transfer there.
[2024-03-03] MEDS: METOPROLOL TARTRATE INJ 5 MG/5 ML VIAL IV PUSH (19:56)
--- NOTE | 2024-03-03 21:00 | PC.NURSE ---
Pt resting c at bedside, awaiting bed status for admit and transfer. Pt aware of POC and continuing to monitor. VSS, no c/o at this time.
[2024-03-03] MEDS: MORPHINE SULFATE (*CRX) 2 MG/ML INJ IV PUSH (21:44)
--- NOTE | 2024-03-03 22:00 | PC.NURSE ---
Call made back to [facility] for bed status, no bed available at this time and may not be until morning or tomorrow. Pt made aware of POC and wait for bed status, will try [facility] for transfer per pt request.
--- NOTE | 2024-03-03 23:00 | PC.NURSE ---
Pt resting, VSS, continuing to monitor and await [facility] to call c bed assignemnt.
--- NOTE | 2024-03-03 23:57 | PC.NURSE ---
Pt reports pain increasing again and starting to radiate into his neck and shoulder, ERP contacted for orders. Order to give Nitro 0.4mg SL received, continuing to monitor and await bed at [facility]. MERISSA SPIVEYR on monitor.
[2024-03-04] VITALS (7 sets, daily range): BP systolic 101–132; BP diastolic 62–95; PULSE 87–99; RESP 12–19; TEMP 36.6; O2SAT 92–95
[2024-03-04] MEDS: NITROGLYCERIN SL 0.4 MG TABLET SUBLINGUAL (00:07)
--- NOTE | 2024-03-04 00:26 | PC.NURSE ---
Report given to FRANCISCO Shaw at [facility]. Called [facility] for transport, Pt resting, still having mild c/o c/p. Morphine 2 mg IVP given per order before transfer. VSS. Monitor continues to show NSR.
[2024-03-04] MEDS: MORPHINE SULFATE (*CRX) 2 MG/ML INJ IV PUSH (00:30)
== END 2024-03-04 00:52 | disposition short-term general hospital (02) ==
PROVIDERS: Emergency Provider Emergency Medicine; PCP Family Medicine
DX: I21.4 Non-ST elevation (NSTEMI) myocardial infarction (principal); I10 Essential (primary) hypertension; E78.5 Hyperlipidemia, unspecified; Z79.82 Long term (current) use of aspirin; Z20.822 Contact with and (suspected) exposure to COVID-19
CPT/HCPCS: 36415; 71045; 71275; 80053; 81001; 83605; 83690; 83880; 84484; 85025; 85380; 85610; 85730; 86140; 87637; 93005; 96361; 96365; 96366; 96375; 99285; A9270; J1644; J2270; J2405; J7030; Q9967

== ENCOUNTER 2024-03-08 14:14 | Outpatient (CLI) | payer OTHER, SELFPAY ==
[2024-03-08 14:52] LABS: Basophils Absolute Auto 0.05 K/mm3 (0.00-0.10); Basophils Percent Auto 0.7 % (0.0-1.0); Eosinophils Absolute Auto 0.14 K/mm3 (0.02-0.50); Eosinophils Percent Auto 1.9 % (1.0-6.0); Hematocrit 43.1 % (40.0-54.0); Hemoglobin 14.3 g/dL (14.0-18.0); INR 0.9; Immature Granulocyte Absolute 0.02 K/mm3 (0.00-0.00); Immature Granulocyte Percent A 0.3 % (0.0-0.0); Lymphocytes Absolute Auto 1.32 K/mm3 (1.10-4.50); Lymphocytes Percent Auto 17.9 % (18.0-42.0); Mean Corpuscular HGB Conc 33.2 g/dL (32-36); Mean Corpuscular Hemoglobin 30.8 pg (27.0-31.0); Mean Corpuscular Volume 92.9 fL (78.0-102.0); Mean Platelet Volume 9.3 fl (8.7-11.0); Monocytes Absolute Auto 0.58 K/mm3 (0.10-0.90); Monocytes Percent Auto 7.8 % (2.0-11.0); Neutrophils Absolute Auto 5.28 K/mm3 (1.70-7.20); Neutrophils Percent Auto 71.4 % (50.0-70.0); Platelet Count Result 364 K/mm3 (150-420); Prothrombin Time 10.1 Seconds (9.50-12.1); Red Blood Count 4.64 M/mm3 (4.70-6.10); Red Cell Distribution Width 12.7 % (11.6-14.4); White Blood Count 7.4 K/mm3 (4.8-10.8)
[2024-03-08 14:55] LABS: Alanine Aminotransferase 89 U/L (16-63); Albumin Level 3.7 g/dL (3.4-5.0); Alkaline Phosphatase 87 U/L (46-116); Anion Gap 7 mmol/L (4-12); Aspartate Amino Transferase 42 U/L (15-37); Bilirubin,Total 0.3 mg/dL (0.00-1.00); Blood Urea Nitrogen 17 mg/dL (7-18); Calcium 8.7 mg/dL (8.5-10.1); Carbon Dioxide 31 mmol/L (21-32); Chloride 105 mmol/L (98-108); Estimated Glomerular Filt Rate 59; Glucose 125 mg/dL (70-99); NT Pro B Type Natriuretic Pept 101 pg/mL (0-125); Osmolality Calculated 298 mOsm/kg (285-295); Potassium 3.3 mmol/L (3.5-5.1); Sodium 143 mmol/L (136-145); Total Protein 7.6 g/dL (6.4-8.2)
[2024-03-08 14:58] LABS: Troponin I 139.4 ng/L (0.00-60.4)
--- NOTE | 2024-03-08 16:17 | PC.NURSE ---
ACCESSED PT CHART DUE TO RELEASE OF INFORMATION THAT WAS OBTAINED FROM [facility]. PT ARRIVED IN THEIR ED REPORTING ELEVATED TROPONIN LEVEL THAT WAS OBTAINED TODAY ON OUTPATIENT LABS AT [facility]. LABS WERE FAXED TO [facility] ED. COPY OF RELEASE SENT TO MEDICAL RECORDS.
== END 2024-03-08 14:15 | disposition home or self-care (01) ==
LOC: CHSLAB 14:16
PROVIDERS: PCP Family Medicine; Visit Provider Family Medicine
DX: R10.9 Unspecified abdominal pain (principal); I50.30 Unspecified diastolic (congestive) heart failure
CPT/HCPCS: 36415; 80053; 83880; 84484; 85025; 85610

== ENCOUNTER 2024-03-24 14:47 | Outpatient (CLI) | payer OTHER, SELFPAY ==
--- NOTE | 2024-03-24 15:08 | ECG_ITS ---
SEE SCANNED COPY FOR CONFIRMED REPORT MTDD
[2024-03-24 16:38] LABS: Cholesterol 203 mg/dL (0-200); HDL Direct 27 mg/dL (40-60); LDL Cholesterol Calculated 85 mg/dL (<130); Triglycerides 457 mg/dL (0-150)
[2024-03-24 16:46] LABS: LDL Cholesterol Direct 121 mg/dL (0-130)
== END 2024-03-24 14:48 | disposition home or self-care (01) ==
LOC: CHSLAB 14:50
PROVIDERS: PCP Family Medicine; Visit Provider Family Medicine
DX: I25.10 Atherosclerotic heart disease of native coronary artery without angina pectoris (principal)
CPT/HCPCS: 36415; 80061; 83721; 93005

== ENCOUNTER 2024-11-02 10:32 | Outpatient (CLI) | payer OTHER, SELFPAY ==
[2024-11-09 12:17] LABS: PS/PT AB IgG 18 U (< OR = 30); PS/PT AB IgM <9 U (< OR = 30)
== END 2024-11-02 10:33 | disposition home or self-care (01) ==
LOC: CHSLAB 10:33
PROVIDERS: PCP Family Medicine; Visit Provider Family Medicine
DX: I25.10 Atherosclerotic heart disease of native coronary artery without angina pectoris (principal)
CPT/HCPCS: 36415; 86146

== ENCOUNTER 2025-03-06 15:21 | Outpatient (CLI) | payer OTHER, SELFPAY ==
--- OUTSIDE RECORDS SUMMARY | 2025-03-06 17:17 | XMS_ITS | Clinical Summary ---
Author Organization [facility] [place] [address] Care Team Providers Care Forensic Audit Expert Name Role Phone Filippo Miguel CUI Primary Care Provider [phone] Allergies Active Allergy Reactions Criticality Noted Date Comments Amoxicillin-Pot Clavulanate Nausea and Vomiting 03/04/2024 Azithromycin Unknown 03/04/2024 Loratadine-Pseudoephedr ine Er Tachycardia 03/04/2024 HR goes up to 220s only with claritin D Takes regular generic claritin with no issues Statins Myalgias 04/04/2024 Medications albuterol sulfate HFA 108 (90 Base) MCG/ACT inhaler 4 Active albuterol (PROVENTIL) (2.5 MG/3ML) 0.083% nebulizer solution 4 Active ezetimibe (ZETIA) 10 MG tablet 4 Active losartan (COZAAR) 25 MG tablet 4 Active ondansetron (ZOFRAN-ODT) 4 MG disintegrating tablet 4 Active pantoprazole EC (PROTONIX) 40 MG tablet 3 Active NURTEC 75 MG disintegrating tablet TAKE 1 TABLET BY MOUTH SINGLE DOSE NEEDED FOR MIGRAINE HEADACHE 4 Active torsemide (DEMADEX) 20 MG tablet 0.5 tablets (10 mg total). 4 Active loratadine (CLARITIN) 10 MG tablet Take 1 tablet (10 mg total) by mouth daily. Active nitroglycerin (NITROSTAT) 0.[address] 1 tablet (0.4 mg total) under the tongue every 5 (five) minutes as needed for Chest Pain. 90 tablet 4 Active metoprolol tartrate (LOPRESSOR) 25 MG tablet Take 0.5 tablets (12.5 mg total) by mouth 2 (two) times daily. 90 tablet 4 Active aspirin EC (ECOTRIN) 81 MG tablet Take 1 tablet (81 mg total) by mouth daily. 90 tablet 3 4 03/06/20 25 Active clopidogrel (PLAVIX) 75 MG tablet Take 1 tablet (75 mg total) by mouth daily. 90 tablet 3 4 03/06/20 25 Active evolocumab (REPATHA SURECLICK) 140 MG/ML injection (PEN)Indications:Mi xed hyperlipidemia Inject 1 mL (140 mg total) into the skin every 14 (fourteen) days. 2 pen. 11 4 Active Active Problems Problem Noted Date Diagnosed Date Mixed hyperlipidemia 03/06/2024 Assessment & Plan (03/06/2024 10:32 AM CDT): Patient with CAD needs aggressive atherosclerosis risk factor modification. He is intolerant of statin. Currently on Zetia. Will start him on PCSK9 inhibitor as outpatient. NSTEMI (non-ST elevated myoc ardial infarction) ([facility]) 03/04/2024 Assessment & Plan (03/06/2024 10:31 AM CDT): S/p PCI stent placement to left anterior descending coronary. Initially was started on Brilinta as this causes shortness of breath. We discontinued Brilinta and started him on clopidogrel. Continue DAPT. Family History Medical History Relation Comments Heart Disease Maternal Grandfather Heart Disease Paternal Grandfather Relation Status Comments Maternal Grandfather Paternal Grandfather Social History Tobacco Use Types Packs/Day Years Used Date Smoking Tobacco: Former Cigarettes Smokeless Tobacco: Never Tobacco Cessation:Counseling Given: Not Answered Alcohol Use Standard Drinks/Week Comments Not Currently 0 (1 standard drink = 0.6 oz pur e alcohol) [facility] Utilities Answer Date Recorded In the past 12 months has th e electric, [employer], oil, or water [employer] threatened to shut off services in your home? No 03/04/2024 Humiliation, Afraid, Rape, and Kick questionnair e Answer Date Recorded Within the last year, have y ou been afraid of your partner or ex-partner? No 03/04/2024 Within the last year, have y ou been humiliated or emotionally abused in other ways by your partner or ex-partner? No Within the last year, have y ou been kicked, hit, slapped, or otherwise physically hurt by your partner or ex-partner? No 03/04/2024 Within the last year, have y ou been raped or forced to have any kind of sexual activity by your partner or ex-partner? No 03/04/2024 Overall Financial Resource Strain (CARDIA) Answe r Date Recorded How hard is it for you to pa y for the very basics like food, housing, medical care, and heating? Not hard at all 03/04/2024 Hunger Vital Sign Answer Date Recorded Within the past 12 months, y ou worried that your food would run out before you got the money to buy more. Never true 03/04/20 24 Within the past 12 months, t he food you bought just didn't last and you didn't have money to get more. Never true 03/04/2024 PRAPARE - Transportation Answer Date Re corded In the past 12 months, has l ack of transportation kept you from medical appointments or from getting medications? No 02/21 In the past 12 months, has l ack of transportation kept you from meetings, work, or from getting things needed for daily living? No 03/04/2024 Housing Stability Vital Sign Answer Markus e Recorded In the last 12 months, was t here a time when you were not able to pay the mortgage or rent on time? No 03/04/2024 In the past 12 months, how m any times have you moved where you were living? 0 03/04/2024 At any time in the past 12 m [facility] [place], were you homeless or living in a chcf (including now)? No 03/04/2024 Sex and Gender Information Value Date Recorded Sex Assigned at Not on file Legal Sex Male 4:35 PM CDT Gender Identity Not on file Sexual Orientation Straight 04/01/2024 7: 57 AM CDT Last Filed Vital Signs Vital Sign Reading Time Taken Comments Blood Pressure 124/80 04/01/2024 10:29 AM CDT Pulse 78 04/01/2024 10:29 AM CDT Temperature 36.5 C (97.7 F) 03/06/2024 8:17 AM CDT Respiratory Rate 16 04/01/2024 10:29 AM CDT Oxygen Saturation 97% 04/01/2024 10:29 AM CDT Inhaled Oxygen Concentration - - Weight 80.3 kg (177 lb) 04/01/2024 10:29 AM CDT Height 175.3 cm (5' 9 ) 04/01/2024 10:29 AM CDT Body Mass Index 26.14 04/01/2024 10:29 AM CDT Plan of Treatment Health Maintenance Due Date Last Done Comments Colorectal Cancer Screening Colonoscopy (10 Years) 1971 Annual Physical 1974 Pneumococcal Vaccine: Pediatrics (0 to 5 Years) and At-Risk Patients (6 to 49 Years) (1 of 2 - PCV) 1977 Hepatitis C 1989 Hepatitis B Vaccines (1 of 3 - 19+ 3-dose series) 1990 DTaP, Tdap and Td Vaccines (6 - Tdap) 02/06/2003 02/06/1993, 07/02/1982, 1971, Additional history exists Zoster Vaccines (1 of 2) 2021 COVID-19 Vaccine ( season) 2024 Meningococcal B Vaccine Aged Out No l onger eligible based on patient's age to complete this topic Meningococcal Vaccine Aged Out No alex gisella eligible based on patient's age to complete this topic RSV Immunizations Under 20 Months Aged Out No longer eligible based on patient's age to complete this topic Medical Devices Implanted Type Area Liquid Sugar Melter Device Identifier Shelf Expiration Date Model / Serial / Lot Cv Xience Skypoint Kevin-Lad-2023 Implanted:10/2024 by Mikie Pathak MD (Quantity not on file) Stent Coronary [employer] 10/26/2026 [id number] / / [id number] Insurance AETNA [employer] Advance Directives * Full Code (Latest Code Status on File) Date Activated Date Inactivated Comments 03/04/2024 4:06 AM 03/06/2024 3:57 PM Care Teams Forensic Audit Expert Relationship Specialty Start Date End Date Miguel Barkley DO [address] [place] [address] PCP - General FAMILY PRACTICE 03/06/24
--- OUTSIDE RECORDS SUMMARY | 2025-03-06 17:17 | XMS_ITS | Encounter Summary ---
Author Organization [facility] Address [address] [place] [address] Care Team Providers Care Portal Administrator Name Role Phone Filippo Miguel CUI Primary Care Provider [phone] Encounter Details Date Type Department Care Team (Late st Contact Info) Description 03/08/2024 Hospital Follow-up Call [facility] Cardiovascular Care Unit [address] [place] [address] Sravanthi Zacarias, RN Social History Tobacco Use Types Packs/Day Years Used Date Smoking Tobacco: Former Cigarettes Smokeless Tobacco: Never Alcohol Use Standard Drinks/Week Comments Not Currently 0 (1 standard drink = 0.6 oz pur e alcohol) [facility] Utilities Answer Date Recorded In the past 12 months has [facility] [employer], gas, oil, or water [employer] threatened to shut off services in your [...] any time in the past 12 m [facility], were you homeless or living in a residential (including now)? No 03/04/2024 Sex and Gender Information Value Date Recorded Sex Assigned at Not on file Legal Sex Male 4:35 PM CDT Gender Identity Not on file Sexual Orientation Straight 04/01/2024 7: 57 AM CDT documented as of this encounter Functional Status * Are you deaf or do you have serious difficulty hearing Answer Date of Assessment Author Status No 03/04/2024 2:45 AM CDT Colin Ribera RN Active * Are you blind or do you have serious difficulty seeing, even when wearing glasses? Answer Date of Assessment Author Status No 03/04/2024 2:45 AM CDT Colin Ribera RN Active * Do you have serious difficulty walking or climbing stairs? Answer Date of Assessment Author Status No 03/04/2024 2:45 AM CDT Colin Ribera RN Active * Do you have difficulty dressing or bathing? Answer Date of Assessment Author Status No 03/04/2024 2:45 AM Colni Earl RN Active * Because of a physical, mental, or emotional condition, do you have difficulty doing errands alone such as visiting a doctor's office or shopping? Answer Date of Assessment Author Status No 03/04/2024 2:45 AM Colin Earl RN Active documented as of this encounter Mental Status * Because of a physical, mental, or emotional condition, do you have serious difficulty concentrating, remembering, or making decisions? Answer Entry Date Author Status No 03/04/2024 2:45 AM Colin Earl RN Active documented in this encounter Plan of Treatment Not on file documented as of this encounter Visit Diagnoses Not on filedocumented in this encounter Care Teams Portal Administrator Relationship Specialty Start Date End Date Miguel Barkley DO [facility] [place] [address] PCP - General FAMILY PRACTICE 03/06/24 documented as of this encounter
== END 2025-03-06 15:22 | disposition home or self-care (01) ==
PROVIDERS: PCP Family Medicine; Visit Provider Nurse Practitioner Family
DX: M79.671 Pain in right foot (principal)
CPT/HCPCS: 73630

== ENCOUNTER 2025-03-30 09:09 | Outpatient (CLI) | payer OTHER, SELFPAY ==
--- NOTE | ~2025-03-30 | MR_ITS ---
EXAMINATION: MR brain/brain stem wo con DATE: 03/30/2025 10:01 INDICATION: Headache and chronic migraines TECHNIQUE: Magnetic resonance imaging (MRI) of the brain and brainstem was performed without intraven ous contrast. Sequences included sagittal and axial T1-weighted SE, axial diffusion-weighted FS SE, a xial T2*-weighted GRE, axial T2-weighted FLAIR, and axial T2-weighted FSE. Apparent diffusion coeffic ient (ADC) maps were created. COMPARISON: None. FINDINGS: There are no areas of restricted diffusion to suggest acute infarction. No intracranial hemorrhage or abnormal intracranial mass lesion. There are no intraparenchymal signal abnormalities seen on the ot her pulse sequences. The ventricles are symmetric and normal in size. There are no abnormal extra-axi al fluid collections. Flow voids are seen in the cerebral arteries on the T2-weighted sequences consi stent with their expected patency. Visualized orbits and soft tissues are unremarkable. Mild mucoperi osteal thickening the paranasal sinuses. IMPRESSION: 1. Normal brain. No acute intracranial process. Reviewed, dictated and finalized at location A.
--- OUTSIDE RECORDS SUMMARY | 2025-03-30 09:24 | XMS_ITS | Clinical Summary ---
Author Organization [facility] [place] [address] Care Team Providers Care Cancer Registry Manager Name Role Phone Filippo Miguel CUI Primary Care Provider [phone] Allergies Active Allergy Reactions Criticality Noted Date [...] (two) times daily. 90 tablet 4 Active evolocumab (REPATHA SURECLICK) 140 MG/ML injection (PEN)Indications:M ixed hyperlipidemia Inject 1 mL (140 mg total) into the skin every 14 (fourteen) days. 2 pen. 11 4 Active aspirin EC (ECOTRIN) 81 MG tablet Take 1 tablet (81 mg total) by mouth daily. 90 tablet 3 4 03/06/20 25 clopidogrel (PLAVIX) 75 MG tablet Take 1 tablet (75 mg total) by mouth daily. 90 tablet 3 4 03/06/20 25 Active Problems Problem Noted Date Diagnosed Date Mixed hyperlipidemia 03/06/2024 Assessment & Plan (03/06/2024 10:32 AM CDT): Patient with CAD needs aggressive atherosclerosis risk factor modification. He is intolerant of statin. Currently on Zetia. Will start him on PCSK9 inhibitor as outpatient. NSTEMI (non-ST elevated myoc ardial infarction) ([facility]) 03/04/2024 Assessment & Plan (03/06/2024 10:31 AM [...] drink = 0.6 oz pur e alcohol) [facility] Utilities Answer Date Recorded In the past 12 months has th e [employer], gas, oil, or water [employer] threatened to shut off services in your [...] any time in the past 12 m [facility], were you homeless or living in a skilled nursing (including now)? No 03/04/2024 Sex and Gender [...] Colonoscopy (10 Years) 1971 Annual Physical 1974 Hepatitis C 1989 Hepatitis B Vaccines (1 of 3 - 19+ 3-dose series) 1990 Pneumococcal Vaccine: 50+ Years (1 of 2 - PCV) 1990 DTaP, Tdap and Td Vaccines (6 - Tdap) 02/06/2003 02/06/1993, 07/02/1982, 1971, Additional history exists Zoster Vaccines (1 of 2) 2021 COVID-19 Vaccine (1 - season) 2024 Meningococcal B Vaccine Aged Out No l onger eligible based on patient's age to complete this topic Meningococcal Vaccine Aged Out No alex gisella eligible based on patient's age to complete this topic RSV Immunizations Under 20 Months Aged Out No longer eligible based on patient's age to complete this topic Medical Devices Implanted Type Area Change Control Manager Device Identifier Shelf Expiration Date Model / Serial / Lot Cv Xience Skypoint Kevin-Lad-2023 Implanted:10/2024 by Mikie Pathak MD (Quantity not on file) Stent Coronary [employer] 10/26/2026 [id number] / / [id number] Insurance AETNA [employer] Advance Directives * Full Code (Latest Code Status on File) Date Activated Date Inactivated Comments 03/04/2024 4:06 AM 03/06/2024 3:57 PM Care Teams Cancer Registry Manager Relationship Specialty Start Date End Date Miguel Barkley DO [address] [place] [address] PCP - General FAMILY PRACTICE 03/06/24
--- OUTSIDE RECORDS SUMMARY | 2025-03-30 09:25 | XMS_ITS | Encounter Summary ---
Author Organization [facility] Address [address] [place] [address] Care Team Providers Care Director Business Development Name Role Phone Filippo Miguel CUI Primary Care Provider [phone] Encounter Details Date Type Department Care Team (Late st Contact Info) Description 03/08/2024 Hospital Follow-up Call [facility] Cardiovascular Care Unit [address] [place] [address] Sravanthi Zacarias, RN Social History Tobacco Use Types Packs/Day Years Used Date Smoking Tobacco: Former Cigarettes Smokeless Tobacco: Never Alcohol Use Standard Drinks/Week Comments Not Currently 0 (1 standard drink = 0.6 oz pur e alcohol) [facility] Utilities Answer Date Recorded In the past 12 months has [facility] [employer], gas, oil, or water [id number] threatened to shut off services in your [...] any time in the past 12 m [facility], were you homeless or living in a snf (including now)? No 03/04/2024 Sex and Gender [...] 03/04/2024 2:45 AM Colin Earl RN Active * Because of a [...] on filedocumented in this encounter Care Teams Director Business Development Relationship Specialty Start Date End Date Miguel Barkley DO [facility] [place] [address] PCP - General FAMILY PRACTICE 03/06/24 documented as of this encounter
== END 2025-03-30 09:10 | disposition home or self-care (01) ==
LOC: CHSIMG 09:10
PROVIDERS: PCP Family Medicine; Visit Provider Family Medicine
DX: R51.9 Headache, unspecified (principal); G89.29 Other chronic pain
CPT/HCPCS: 70551